=== PATIENT | female | born 1955 | race African-American/Black ===

== ENCOUNTER 2016-06-16 18:26 | Inpatient (IN) | payer OTHER ==
[~2016-06-16] VITALS: Ht 162.6 cm; Wt 75.7 kg
[2016-06-16 19:57] LABS: Basophils # (auto) 0 uL; Basophils % (auto) 0.3 % (0.0-2.0); Eosinophils # (auto) 0.1 uL; Eosinophils % (auto) 0.9 % (0.0-7.0); Hematocrit 47.5 % (36.0-46.0); Hemoglobin 15.8 g/dL (12.2-16.2); Lymphocytes # (auto) 2.2 uL; Lymphocytes % (auto) 18.3 % (10.0-50.0); Mean Corpuscular Hgb Conc. 33.2 g/dL (32.0-36.0); Mean Corpuscular Volume 87.2 fL (80.0-100.0); Mean Platelet Volume 9.4 fL (7.4-10.4); Monocytes # (auto) 0.4 uL; Monocytes % (auto) 3.2 % (0.0-12.0); Neutrophils # (auto) 9.1 uL; Neutrophils % (auto) 77.3 % (37.0-80.0); Platelet Count (auto) 256 10^3/uL (140-450); Red Cell Distribution Width 14.8 % (11.6-16.0); White Blood Cell 11.8 10^3/uL (4.4-10.8)
[2016-06-16 20:16] LABS: INR 1.01 (0.9-1.15); Partial Thromboplastin Time 26.6 sec (22.64-33.71); Prothrombin Time 10.9 sec (9.37-12.3)
[2016-06-16 20:18] LABS: Albumin 3.7 g/dL (3.4-5.0); Alkaline Phosphatase 88 U/L (45-117); Anion Gap 8 (5-15); Aspartate Aminotransferase 11 U/L (15-37); BUN/Creatinine Ratio 12.9; Bilirubin, Total 0.4 mg/dL (0.2-1.0); Blood Urea Nitrogen 11 mg/dL (7-18); Carbon Dioxide 27 mmol/L (21-32); Chloride 105 mmol/L (98-107); GFR African American 87 mL/min; GFR Non-African American 72 mL/min; Glucose 96 mg/dL (74-106); Potassium 3.7 mmol/L (3.5-5.1); Sodium 140 mmol/L (136-145); Total Protein 8.4 g/dL (6.4-8.2)
[2016-06-16 20:20] LABS: B-Type Natriuretic Peptide 89.79 pg/mL (0-100)
[2016-06-16 20:24] LABS: Temperature: 21.9 C (20.0-25.0)
[2016-06-16] MEDS ORDERED: cloNIDine HCL 0.1 MG TAB PO ONE (20:45)
[2016-06-16] MEDS ORDERED: FUROSEMIDE 20 MG/2 ML VIAL IV ONE (21:45)
[2016-06-16 23:32] LABS: Urine RBC None Seen /hpf (0 - 4)
[2016-06-16 23:40] LABS: Urine Bilirubin Negative (Negative); Urine Blood Negative /uL (Negative); Urine Color Yellow (Yellow); Urine Glucose Normal (Normal); Urine Ketone Negative (Negative); Urine Mucus FEW (None Seen); Urine Nitrite Negative (Negative); Urine Squamous Epithelial Cell FEW /hpf (<5)
[2016-06-17] VITALS (8 sets, daily range): BP systolic 134–157; BP diastolic 71–90
[2016-06-17] MEDS ORDERED: IOHEXOL 300 MG/ML 100ML BOTTLE IJ ONE (00:02)
[2016-06-17] MEDS ORDERED: SODIUM CHLORIDE 0.9% 1,000 ML IV SCH (04:06)
[2016-06-17] MEDS ORDERED: MORPHINE SULF INJ 2 MG/ML SYRINGE 1ML IV PRN ×2 (04:15)
[2016-06-17] MEDS ORDERED: TEMAZEPAM 15 MG CAP PO PRN ×2 (04:15→15:00)
[2016-06-17] MEDS ORDERED: HYDROcodone-ACET 5/325MG TAB PO PRN (04:15)
[2016-06-17] MEDS ORDERED: ONDANSETRON HCL 4 MG/2 ML VIAL IV PRN (04:15)
[2016-06-17] MEDS ORDERED: DOCUSATE SOD 100 MG CAP PO PRN (04:15)
[2016-06-17] MEDS ORDERED: NITROGLYCERIN 0.4 MG SL TAB SL PRN (04:15)
[2016-06-17] MEDS: cloNIDine HCL 0.1 MG TAB PO SCH ×2 (10:42→21:39)
[2016-06-17] MEDS ORDERED: METHIMAZOLE 5 MG TAB PO ONE (15:00)
[2016-06-17] MEDS ORDERED: ALPRAZolam 0.25 MG TAB PO ONE (15:00)
[2016-06-17] MEDS ORDERED: HCTZ 25 MG TAB PO ONE (15:00)
[2016-06-17] MEDS ORDERED: IOHEXOL 350 MG/ML 100ML IJ ONE (15:53)
[2016-06-17] MEDS: METHIMAZOLE 5 MG TAB PO SCH (21:39)
[2016-06-17] MEDS: ALPRAZolam 0.25 MG TAB PO SCH (21:40)
[2016-06-18 05:30] VITALS: BP 124/74
[2016-06-18 09:03] VITALS: BP 142/80
[2016-06-18] MEDS ORDERED: IOHEXOL 300 MG/ML 100ML BOTTLE IJ ONE (09:23)
[2016-06-18] MEDS ORDERED: HCTZ 25 MG TAB PO SCH (10:00)
[2016-06-18] MEDS: cloNIDine HCL 0.1 MG TAB PO SCH (11:49)
[2016-06-18] MEDS: ALPRAZolam 0.25 MG TAB PO SCH (11:50)
[2016-06-18] MEDS: METHIMAZOLE 5 MG TAB PO SCH (11:50)
[2016-06-18 12:35] VITALS: BP 132/83
[2016-06-18 14:02] VITALS: BP 142/80
== END 2016-06-18 15:20 | disposition home or self-care (01) | DRG 199 ==
LOC: EDBD 18:26 → ER 18:31 → EDUNIT# 18:32 → TELE-WESTW 18:32
PROVIDERS: ADMIT Emergency Medicine; ATTEND Internal Medicine
DX: I10 Essential (primary) hypertension (principal); I27.2 Other secondary pulmonary hypertension; J44.9 Chronic obstructive pulmonary disease, unspecified; E03.9 Hypothyroidism, unspecified; F41.9 Anxiety disorder, unspecified; E05.90 Thyrotoxicosis, unspecified without thyrotoxic crisis or storm; F17.210 Nicotine dependence, cigarettes, uncomplicated; K80.20 Calculus of gallbladder without cholecystitis without obstruction; Z82.49 Family history of ischemic heart disease and other diseases of the circulatory system; Z83.3 Family history of diabetes mellitus; Z86.711 Personal history of pulmonary embolism; Z91.14 Patient's other noncompliance with medication regimen; Z88.5 Allergy status to narcotic agent
CPT/HCPCS: 36415; 71010; 71260; 80053; 81001; 83880; 84439; 84443; 84481; 84484; 85025; 85610; 85730; 96374; J2405